=== PATIENT | male | born 1955 | race Caucasian/White ===

== ENCOUNTER → 2017-08-18 | Outpatient (CLI) | payer OTHER | LOC: M RAD 07:00 | DX: I87.312 Chronic venous hypertension (idiopathic) with ulcer of left lower extremity (principal) | CPT/HCPCS: 93971 ==

== ENCOUNTER → 2020-07-24 | Outpatient (CLI) | payer OTHER ==
--- NOTE | 2020-07-25 07:29 | REP ---
INDICATION: CHRONIC VENOUS HYPERTENSION W ULCER OF L LOW EXTREM. TECHNIQUE: Real time browning scale and color Doppler evaluation of the left lower extremity arterial vasculature using linear high frequency transducer. FINDINGS: The ankle to brachial index of the left lower extremity is 1.0. Color Doppler interrogation demonstrates normal primarily triphasic wave patterns and velocities from the common femoral artery through the lower extremity to the distal posterior tibial and anterior tibial arteries. Minimal amounts of scattered atheromatous plaquing noted without visible areas of narrowing/stenosis or occlusion. PEAK SYSTOLIC VELOCITIES (CM/S) Common femoral artery: 87.6 cm/s Profunda femoris artery: 32.8 cm/s Proximal superficial femoral artery: 83.1 cm/s Mid superficial femoral artery: 75.2 cm/s Distal superficial femoral artery: 67.4 cm/s Popliteal artery: 60.2 cm/s Proximal ANDREW: 71.9 cm/s Tibioperoneal trunk: 65.7 cm/s Proximal LEADLIGHTER: 68.4 cm/s Distal LEADLIGHTER: 88.9 cm/s Distal ANDREW: 55.0 cm/s IMPRESSION: Relatively normal age-appropriate examination. No focal areas of stenosis/narrowing or occlusion. <Electronically signed by Washington Maynard > 07/25/20 0727
== END ==
LOC: M RAD 10:41
PROVIDERS: ATTEND Surgery
DX: I87.312 Chronic venous hypertension (idiopathic) with ulcer of left lower extremity (principal); L97.322 Non-pressure chronic ulcer of left ankle with fat layer exposed

== ENCOUNTER → 2025-04-07 | Outpatient (CLI) | payer MEDICARE | LOC: M RAD 14:31 | PROVIDERS: ATTEND Surgery | DX: L97.322 Non-pressure chronic ulcer of left ankle with fat layer exposed (principal); L97.922 Non-pressure chronic ulcer of unspecified part of left lower leg with fat layer exposed; I87.312 Chronic venous hypertension (idiopathic) with ulcer of left lower extremity ==

== ENCOUNTER → 2025-05-05 | Outpatient (CLI) | payer MEDICARE | LOC: M WHC 11:02 | DX: R22.42 Localized swelling, mass and lump, left lower limb (principal) ==

== ENCOUNTER → 2025-05-18 | Outpatient (POV) | payer MEDICARE ==
[~2025-05-18] VITALS: Ht 182.9 cm; Wt 102.1 kg
[2025-05-18 11:12] VITALS: BP 167/77; O2SAT 99
== END ==
LOC: M IRPOV 10:59
PROVIDERS: ATTEND Radiology Diagnostic Radiology
DX: I87.9 Disorder of vein, unspecified (principal); L97.829 Non-pressure chronic ulcer of other part of left lower leg with unspecified severity; Z79.82 Long term (current) use of aspirin
CPT/HCPCS: 11042; 11045; G0463